=== PATIENT | female | born 1960 | race Hispanic/Latino ===

== ENCOUNTER 2017-08-12 11:00 | Outpatient (CLI) | payer MEDICARE | END 2017-08-12 11:01 | disposition home or self-care (01) | LOC: SLR 11:00 | PROVIDERS: ATTEND Specialist | DX: G47.30 Sleep apnea, unspecified (principal) | CPT/HCPCS: 95810 ==

== ENCOUNTER 2018-03-04 06:31 | Day surgery (SDC) | payer MEDICARE ==
[~2018-03-04 06:31] MED LIST: NACL 0.9% 1000 ML 1,000 ML IV SCH
[2018-03-04] MEDS ORDERED: ZOFRAN ONE (08:51)
--- NOTE | 2018-03-04 08:52 | Anesthesia Consultation ---
Anesthesia Consult and Med Hx Date of service: 03/04/18 - Airway Anesthetic Teeth Evaluation: Dentures (upper/lower) ROM Head & Neck: Adequate Mental/Hyoid Distance: Adequate Mallampati Class: Class II Intubation Access Assessment: Probably Good - Pulmonary Exam CTA: Yes - Cardiac Exam Cardiac Exam: RRR - Pre-Operative Health Status ASA Pre-Surgery Classification: ASA3 Proposed Anesthetic Plan: MAC - Central Nervous System Hx Seizures: Yes (child, last seizure at 21 ) Hx Psychiatric Problems: Yes (Depression, anxiety ) - Gastrointestinal Hx Gastroesophageal Reflux Disease: Yes - Other Systems Hx Cancer: Yes (Right breast) Hx Obesity: Yes
--- NOTE | 2018-03-04 09:00 | Anesthesia Day of Surgery ---
Anesthesia Day of Surgery - Day of Surgery Patient Examined: Yes Patient H&P Reviewed: Yes Patient is NPO: Yes
[2018-03-04] MEDS ORDERED: DIPRIVAN 10 MG/ML IV ONE (11:03)
[2018-03-04] MEDS ORDERED: HURRICAINE ONE 20% TOPICAL SPRAY MM (11:06)
[2018-03-04 11:54] VITALS: BP 116/72
--- NOTE | 2018-03-04 12:05 | Post Anesthesia Evaluation ---
- Post Anesthesia Evaluation Patient Participated: Yes Airway Patent: Yes Stable Respiratory Function: Yes Nausea/Vomiting: No Temp > 96.8F: Yes Pain Manageable: Yes Adequeate Hydration: Yes Anesthesia Complications: No Block Receding Appropriately: Not Applicable Patient on Ventilator: No
[2018-03-04] MEDS ORDERED: HURRICAINE ONE 20% TOPICAL SPRAY MM NR (14:00)
== END 2018-03-04 06:32 | disposition home or self-care (01) ==
LOC: GIO 06:31
PROVIDERS: ATTEND Specialist
DX: K44.9 Diaphragmatic hernia without obstruction or gangrene (principal); K21.9 Gastro-esophageal reflux disease without esophagitis; E66.01 Morbid (severe) obesity due to excess calories; E78.00 Pure hypercholesterolemia, unspecified; I10 Essential (primary) hypertension; F41.9 Anxiety disorder, unspecified; F32.9 Major depressive disorder, single episode, unspecified; Z98.890 Other specified postprocedural states; Z96.643 Presence of artificial hip joint, bilateral; Z85.3 Personal history of malignant neoplasm of breast; Z68.41 Body mass index [BMI] 40.0-44.9, adult; Z88.0 Allergy status to penicillin
CPT/HCPCS: 43235; J2405; J2704; J7030

== ENCOUNTER 2019-08-05 10:28 | Outpatient (CLI) | payer MEDICARE ==
--- NOTE | 2019-08-06 14:22 | Mammography Report ---
BONE DEXA CLINICAL: History of breast cancer. Postmenopausal. COMPARISON: 01/06/2016 TECHNIQUE: 2 site bone DEXA performed on an Hologic scanner. FINDINGS: The average BMD of the lumbar spine L1-L4 is 0.923g/cm squared with a T score of -1.1 and a Z score o f +0.1. This compares to 0.826g/cm squared on the last exam and represents a +11.7 % change from the [previous baseline]. The average BMD of the left forearm is 0.540 g/cm squared with a T score of -0.5and a Z score of +0.7 . This compares to 0.63 g/cm squared on the last exam and represents a +2.0 % change from the [previo us baseline]. IMPRESSION: 1. WHO classification: Osteopenia with increased fracture risk based on spine measurements. 2. WHO classification Normal with average fracture risk based on left forearm measurements. 3. A modest increase in forearm BMD and a much greater increase in spine BMD compared to the previous exam. RECOMMENDATION: Clinical correlation and routine screening. Definitions: BMD equal bone mineral density T score = BMD related to peak bone mass of young adult (Minh expressed an standard deviation) Z score = age-matched BMD expressed in SD World health organization (WHO) diagnostic criteria Normal T score greater than equal to 1 standard deviation Osteopenia T score between -1 and -2.4 standard deviation Osteoporosis T score -2.5 standard deviation or below. Note: BMD is not the only risk factor for fracture; also consider factors such as the patient's age, risk of falling, previous osteoporotic fracture, family history of osteoporotic fractures, current sm oker and low body weight. Z scores are not calculated if greater than 80 years of age. Signer Name: Christopher Camacho MD Signed: 08/06/2019 2:17 PM Workstation Name: [id number]
== END 2019-08-05 10:29 | disposition home or self-care (01) ==
LOC: SPVWC 10:28
PROVIDERS: ATTEND Internal Medicine Hematology & Oncology
DX: M85.89 Other specified disorders of bone density and structure, multiple sites (principal)
CPT/HCPCS: 77080

== ENCOUNTER 2021-06-27 14:25 | Outpatient (CLI) | payer MEDICARE ==
--- NOTE | 2021-06-27 16:43 | Magnetic Resonance Report ---
MRI cervical spine without contrast INDICATION: Neck pain TECHNIQUE: Axial and sagittal images FINDINGS: Alignment appears normal. Craniocervical junction appears normal. C2-C3: No spinal canal narrowing or neuroforaminal narrowing. C3-C4: No spinal canal narrowing or neuroforaminal narrowing. C4-C5: No spinal canal narrowing or neuroforaminal narrowing. C5-C6: Uncovertebral degenerative change of the right. No spinal canal narrowing or neuroforaminal na rrowing. C6-C7: No spinal canal narrowing or neuroforaminal narrowing. C7-T1: No spinal canal narrowing or neuroforaminal narrowing. IMPRESSION: Multilevel discogenic degenerative change. Please see above level description. Signer Name: John Guerin MD Signed: 06/27/2021 4:38 PM Workstation Name: [id number]
== END 2021-06-27 14:26 | disposition home or self-care (01) ==
LOC: SPVIMAG 14:25
PROVIDERS: ATTEND Orthopaedic Surgery Orthopaedic Surgery of the Spine
DX: M47.812 Spondylosis without myelopathy or radiculopathy, cervical region (principal)
CPT/HCPCS: 72141

== ENCOUNTER 2022-01-31 15:03 | Outpatient (CLI) | payer MEDICARE ==
--- NOTE | 2022-02-01 08:42 | Mammography Report ---
DEXA BONE DENSITY SCAN INDICATION / CLINICAL INFORMATION: AGE-RELATED OSTEOPOROSIS M81.0. 61 years Female COMPARISON: None available. LUMBAR SPINE, L1-L4: - Bone mineral density (BMD) = 0.916 g/cm2. - T-score = -1.2 - Change (%) since most recent prior (if available): -0.8 FOREARM, 33% RADIUS - Bone mineral density (BMD) = 0.655 g/cm2. - T-score = -0.5 - Change (%) since most recent prior (if available): 3.2 IMPRESSION: 1. WHO Classification: Osteopenia. Fracture Risk: Increased. 2. 10-Year Fracture Risk (FRAX) = Major Osteoporotic Not reported.% / Hip: Not reported.% FRAX generally not reported for patients with normal or osteoporotic BMD, in [id number]-[id number] meli ents younger than age 50, or in patients undergoing pharmacotherapy BMD Reporting Guidelines (ISCD, 2015) BMD Reporting in Postmenopausal Women and in Men Age 50 and Older - T-scores are preferred. - The WHO densitometric classification is applicable. BMD Reporting in Females Prior to Menopause and in Males Younger Than Age 50 - Z-scores, not T-scores, are preferred. This is particularly important in children. - A Z-score of -2.0 or lower is defined as below the expected range for age, and a Z-score above -2.0 is within the expected range for age. - Osteoporosis cannot be diagnosed in men under age 50 on the basis of BMD alone. - The WHO diagnostic criteria may be applied to women in the menopausal transition. http://www.iscd.org/official-positions/2342-msct-ryzpitpz-positions-adult/ Signer Name: Allan Perez MD Signed: 02/01/2022 8:38 AM Workstation Name: [id number]
== END 2022-01-31 15:04 | disposition home or self-care (01) ==
LOC: SPVWC 15:03
PROVIDERS: ATTEND Internal Medicine Hematology & Oncology
DX: M81.0 Age-related osteoporosis without current pathological fracture (principal)
CPT/HCPCS: 77080